=== PATIENT | male | born 1985 | race African-American/Black ===

== ENCOUNTER 2016-12-04 13:19 | Emergency (ER) | payer OTHER ==
[2016-12-04 13:24] VITALS: BP 122/75; PULSE 75; TEMP 98; BMI 25.7
--- NOTE | 2016-12-04 14:25 | PDOC ---
History of Present Illness <Latoya Torres - Last Filed: 12/04/16 16:58> - History of Present Illness Initial Comments: 12/04/16 22:47 Patient is a 31 year old male with significant history of recent HIV diagnosis ( not on HAART yet) who presents to the ED sent in by Dr. Kowalski from [facility] with diarrhea. Patient states that he was seen in the ED 4 weeks ago and his K was 2.9 and he was referred to GI. He was evaluated by GI and had a normal colonoscopy but was diagnosed with HIV. Patient also reported that he had 50 lb loss in 6 months. Patient states that he was seen by Dr. Kowalski today where he continued to endorse many episodes of diarrhea and had concerning changes on ECG for hypokalemia. He also reports diarrhea for 6 months , watery-yellow, intermittent, nonbloody, not alleviated with probiotics and imodium. He denies any fever or chills. He denies any abdominal pain, nausea, vomiting or lightheadedness. He denies any cp, SOB or palpitations. He reports having sexual intercourse with multiple partners, using protection. He denies any prior hx of STD. I spoke with Dr. Kowalski personally who called the patient in and was concerned because he had U waves on his ECG. PMD - Dr. Kennedy <Dalila Beauchamp - Last Filed: 12/04/16 23:02> - General Chief Complaint: Diarrhea Stated Complaint: LAB VARIANCE (PCP SENT) LOW K Time Seen by Provider: 12/04/16 14:24 Past History <Latoya Torres - Last Filed: 12/04/16 16:58> - Past Medical History Anemia: No Asthma: Yes Cancer: No Cardiac Disorders: No CVA: No COPD: No CHF: No Dementia: No Diabetes: No GI Disorders: No Disorders: Yes (seveeral UTI) HTN: (borderline htn) Hypercholesterolemia: No Liver Disease: No Seizures: No Thyroid Disease: No - Suicide/Smoking/Psychosocial Hx Smoking History: Never smoked Information on smoking cessation initiated: No Hx Alcohol Use: No Drug/Substance Use Hx: No Substance Use Type: None Hx Substance Use Treatment: No <Dalila Beauchamp - Last Filed: 12/04/16 23:02> - Past Medical History Allergies/Adverse Reactions: Allergies Allergy/AdvReac Type Severity Reaction Status Date / Time No Known Allergies Allergy Verified 12/04/16 13:24 Home Medications: Ambulatory Orders Potassium Chloride [K-Dur -] 20 meq PO BID #60 tablet.er 12/04/16 Review of Systems - Review of Systems Comments:: 12/04/16 22:48 GENERAL/CONSTITUTIONAL: No fever or chills. No weakness. HEAD, EYES, EARS, NOSE AND THROAT: No change in vision. No ear pain or discharge. No sore throat. GASTROINTESTINAL: +diarrhea. No nausea, vomiting or constipation. GENITOURINARY: No dysuria, frequency, or change in urination. CARDIOVASCULAR: No chest pain or shortness of breath. RESPIRATORY: No cough, wheezing, or hemoptysis. MUSCULOSKELETAL: No joint or muscle swelling or pain. No neck or back pain. SKIN: No rash NEUROLOGIC: No headache, vertigo, loss of consciousness, or change in strength/ sensation. ENDOCRINE: No increased thirst. No abnormal weight change. HEMATOLOGIC/LYMPHATIC: No anemia, easy bleeding, or history of blood clots. ALLERGIC/IMMUNOLOGIC: No hives or skin allergy. <Dalila Beauchamp - Last Filed: 12/04/16 23:02> *Physical Exam - Vital Signs Last Vital Signs Temp Pulse Resp BP Pulse Ox 98 F 75 18 122/75 100 12/04/16 13:22 12/04/16 13:22 12/04/16 13:22 12/04/16 13:22 12/04/16 13:22 <Latoya Torres - Last Filed: 12/04/16 16:58> - Vital Signs Last Vital Signs Temp Pulse Resp BP Pulse Ox 98 F 75 18 122/75 100 12/04/16 13:22 12/04/16 13:22 12/04/16 13:22 12/04/16 13:22 12/04/16 13:22 - Physical Exam Comments: 12/04/16 22:49 GENERAL: Awake, alert, and fully oriented, in no acute distress HEAD: No signs of trauma EYES: PERRLA, EOMI, sclera anicteric, conjunctiva clear ENT: Auricles normal inspection, hearing grossly normal, nares patent, oropharynx clear without exudates. Moist mucosa NECK: Normal ROM, supple, no lymphadenopathy, JVD, or masses LUNGS: Breath sounds equal, clear to auscultation bilaterally. No wheezes, and no crackles HEART: Regular rate and rhythm, normal S1 and S2, no murmurs, rubs or gallops ABDOMEN: Soft, nontender, normoactive bowel sounds. No guarding, no rebound. No masses EXTREMITIES: Normal range of motion, no edema. No clubbing or cyanosis. No cords, erythema, or tenderness BACK: No midline spinal tendernes in cervial/throacic/lumbar region NEUROLOGICAL: Normal speech, cranial nerves intact, negative pronator drift, 5/ 5 strength in all 4 extremities, normal sensation to light touch in all 4 extremities, normal cerebellar exam, normal gait, normal reflexes and tone SKIN: Warm, Dry, normal turgor, no rashes or lesions noted. <Dalila Beauchamp - Last Filed: 12/04/16 23:02> Heart Score/ECG Review #1 12/04/16 22:49 Twelve-lead EKG was performed and reviewed by me. Normal sinus rhythm, rate of 62. Normal axis and intervals. No ST elevations. T wave inversions in leads 2, 3 , and aVF. Also T-wave inversions in V3 and V4. Positive U wave in lead V2. <Dalila Beauchamp - Last Filed: 12/04/16 23:02> ED Treatment Course - LABORATORY CBC & Chemistry Diagram: 12/04/16 14:25 12/04/16 14:25 - ADDITIONAL ORDERS Additional order review: Laboratory Results 12/04/16 14:25 Sodium 141 Potassium 2.8 L* Chloride 106 Carbon Dioxide 31 Anion Gap 4 L BUN 7 Creatinine 0.9 Creat Clearance w eGFR > 60 Random Glucose 95 Calcium 9.0 Magnesium 1.8 Total Bilirubin 1.2 H AST 31 ALT 48 Alkaline Phosphatase 85 Total Protein 8.4 H Albumin 4.0 12/04/16 14:25 RBC 4.34 MCV 84.6 MCHC 33.9 RDW 15.3 MPV 7.9 Neutrophils % 59.5 Lymphocytes % 24.9 Monocytes % 6.6 Eosinophils % 7.8 H Basophils % 1.2 - Medications Given in the ED: ED Medications Discontinued Medications Generic Name Dose Route Start Last Admin Trade Name Freq PRN Reason Stop Dose Admin Potassium Chloride 60 meq 12/04/16 15:04 12/04/16 15:34 Potassium Chloride Oral Liquid PO 12/04/16 15:05 60 meq ONCE ONE Administration <Leticia Torresa - Last Filed: 12/04/16 16:58> - LABORATORY CBC & Chemistry Diagram: 12/04/16 14:25 12/04/16 18:30 <Dalila Beauchamp - Last Filed: 12/04/16 23:02> Medical Decision Making - Medical Decision Making 12/04/16 15:30 31-year-old male with a history of recently diagnosed HIV, chronic diarrhea presents with concern for hypokalemia. Patient's potassium here today's 2.8. His vitals are stable and his exam is unremarkable however there is concern for cardiac arrhythmia secondary to his low potassium. We will replete and recheck the potassium. -60meq PO KCl -10meq KCl in 1L NS IV -recheck BMP 5:30p 12/04/16 20:02 Repeat potassium is still 2.8. Patient likely has malabsorption and did not absorb any of the PO potassium. I discussed with patient that his potassium is very low and will require admission for IV repletion however he reports he has a prior engagement at 9:30pm. He lets me know that he will return to the emergency department at 11:30 or 12a midnight for IV repletion of his potassium. The patient is clinically sober, free from distracting injury, appears to have intact insight and judgment and reason and in my opinion has the capacity to make decisions. The patient presents with hypokalemia. I have explained that I am concerned that this may cause abnormal heart rhythms that could cause him to lose consciousness or even ; he has verbalized an understanding of my concerns. I have told the patient that if they leave and have a low potassium level, they could get much worse, could become critically ill, and could possibly become disabled or . I have offered to give the patient more pain medication. I have asked them to stay in the hospital for multiple doses of IV potassium. The patient is not willing to stay for admission, observation, or treatment. He states he will return later tonight after his prior engagement. He is refusing any further care now and is leaving against medical advice. I am unable to convince the patient to stay, I have asked them to return as soon as possible to complete their evaluation. I have spoken with Dr. Kowalski in regards to their persistent hypokalemia who will also reach out to the patient. I have answered all their questions. The patient signed the AMA form and left the emergency department. I informed the night attending that this patient may be returning tonight and that he will need an obs admission for IV K repletion. <Dalila Beauchamp - Last Filed: 12/04/16 23:02> *DC/Admit/Observation/Transfer <Latoya Torres - Last Filed: 12/04/16 16:58> <Dalila Beauchamp - Last Filed: 12/04/16 23:02> Diagnosis at time of Disposition: Hypokalemia - Discharge Dispostion Disposition: AGAINST MEDICAL ADVICE Condition at time of disposition: Unchanged/Unknown - Referrals Referrals: Gerson Kennedy MD [Primary Care Provider] -
[2016-12-04] MEDS ORDERED: POTASSIUM CHLORIDE 10 MEQ in SODIUM CHLORIDE 1,000 ML IVPB SCH (14:30)
[2016-12-04 14:38] LABS: BASOPHIL 1.2 % (0-2.0); EOSINOPHIL 7.8 % (0-4.5); MCH 28.7 pg (25.7-33.7); MCHC 33.9 g/dl (32.0-35.9); MEAN CELL VOLUME 84.6 fl (80-96); MEAN PLT VOLUME 7.9 fl (7.5-11.1); NEUTROPHILS 59.5 % (42.8-82.8); PLATELET COUNT 293 K/MM3 (134-434); RDW 15.3 % (11.9-15.9); WHITE BLOOD COUNT 4.3 K/mm3 (4.0-10.0)
[2016-12-04 14:54] LABS: ANION GAP 4 (8-16); BILIRUBIN,TOTAL 1.2 mg/dL (0.2-1.0); CO2 31 mmol/L (21-32); CREATININE 0.9 mg/dL (0.7-1.3); GLUCOSE,RANDOM 95 mg/dL (74-106); MAGNESIUM 1.8 mg/dL (1.8-2.4); SGOT/AST 31 U/L (15-37); SGPT/ALT 48 U/L (12-78); TOT PROT 8.4 g/dl (6.4-8.2)
[2016-12-04 14:55] LABS: ALK PHOS 85 U/L (45-117)
[2016-12-04] MEDS ORDERED: POTASSIUM CHLORIDE ORAL LIQUID 20 MEQ/15 ML PO ONE (15:04)
[2016-12-04] MEDS ORDERED: POTASSIUM CHLORIDE ORAL LIQUID 20 MEQ/15 ML ONE (15:33)
--- NOTE | 2016-12-04 15:58 | EKG ---
Test Reason : Blood Pressure : / mmHG Vent. Rate : 062 BPM Atrial Rate : 062 BPM P-R Int : 204 ms QRS Dur : 102 ms QT Int : 394 ms P-R-T Axes : 023 -10 -30 degrees QTc Int : 399 ms NORMAL SINUS RHYTHM NONSPECIFIC T WAVE ABNORMALITY ABNORMAL ECG WHEN COMPARED WITH ECG OF 04-DEC-2016 11:27, NO SIGNIFICANT CHANGE WAS FOUND Confirmed by LEATHA MILLER MD ([id number]) on 12/04/2016 3:57:34 PM Referred By: Confirmed By:LEATHA MILLER MD
[2016-12-04 19:10] LABS: ALBUMIN 3.9 g/dl (3.4-5.0); ANION GAP 9 (8-16); CALCIUM 8.7 mg/dL (8.5-10.1); CO2 27 mmol/L (21-32); CREATININE 0.8 mg/dL (0.7-1.3); GLUCOSE,RANDOM 80 mg/dL (74-106); SGOT/AST 29 U/L (15-37); SGPT/ALT 44 U/L (12-78); TOT PROT 7.9 g/dl (6.4-8.2)
[2016-12-04 19:11] LABS: ALK PHOS 118 U/L (45-117)
== END 2016-12-04 21:26 | disposition left against medical advice (07) ==
LOC: JER 13:19
DX: E87.6 Hypokalemia (principal); Z21 Asymptomatic human immunodeficiency virus [HIV] infection status; I10 Essential (primary) hypertension; J45.909 Unspecified asthma, uncomplicated; Z87.440 Personal history of urinary (tract) infections
CPT/HCPCS: 36415; 80053; 83735; 85025; 93005; 93010; 99284-25

== ENCOUNTER 2016-12-05 08:04 | Emergency (ER) | payer OTHER ==
[2016-12-05 08:15] VITALS: TEMP 98.2; BMI 25.7
[2016-12-05 08:43] LABS: BASOPHIL 0.9 % (0-2.0); EOSINOPHIL 9.6 % (0-4.5); MCH 29.2 pg (25.7-33.7); MCHC 34.4 g/dl (32.0-35.9); NEUTROPHILS 47.1 % (42.8-82.8); PLATELET COUNT 293 K/MM3 (134-434); RDW 15.7 % (11.9-15.9)
[2016-12-05 08:50] LABS: PH,URINE 6.5 (5.0-8.0); URINE APPEARANCE CLEAR; URINE BILIRUBIN NEGATIVE (NEGATIVE); URINE BLOOD TRACE-LYSE (NEGATIVE); URINE COLOR LT. YELLOW; URINE GLUCOSE (UA) NEGATIVE (NEGATIVE); URINE KETONE TRACE (NEGATIVE); URINE LEUK ESTERASE NEGATIVE (NEGATIVE); URINE NITRITE NEGATIVE (NEGATIVE)
[2016-12-05 08:58] LABS: URINE PROTEIN 1+ (NEGATIVE)
[2016-12-05 09:07] LABS: ANION GAP 8 (8-16); CALCIUM 9.1 mg/dL (8.5-10.1); CO2 25 mmol/L (21-32); CREATININE 0.8 mg/dL (0.7-1.3); GLUCOSE,RANDOM 82 mg/dL (74-106); MAGNESIUM 1.9 mg/dL (1.8-2.4); SGOT/AST 33 U/L (15-37); SGPT/ALT 47 U/L (12-78); TOT PROT 8.3 g/dl (6.4-8.2)
[2016-12-05 09:08] LABS: ALK PHOS 91 U/L (45-117)
[2016-12-05] MEDS ORDERED: POTASSIUM CHLORIDE TABS 20 MEQ TABLET.ER (FP) PO ONE ×4 (09:11→13:30)
[2016-12-05 09:14] LABS: URINE BACTERIA RARE /hpf (NONE SEEN); URINE MUCUS RARE; URINE RBC <1 /hpf (0-3); URINE WBC 6 /hpf (3-5)
[2016-12-05] MEDS ORDERED: MAGNESIUM OXIDE 400 MG TABLET (FP) PO ONE (09:18)
[2016-12-05] MEDS ORDERED: KCL 10 MEQ IVPB 200 ML IVPB ONE (09:21)
[2016-12-05] MEDS ORDERED: MAGNESIUM OXIDE 400 MG TABLET (FP) ONE (09:21)
[2016-12-05] MEDS: KCL 10 MEQ IVPB 100 ML IVPB SCH ×2 (09:31→10:34)
--- NOTE | 2016-12-05 09:41 | PDOC ---
History of Present Illness - General History Source: Patient Exam Limitations: No Limitations - History of Present Illness Initial Comments: 12/05/16 09:46 The patient is a 31 year old male, with a significant past medical history of HIV(recently diagnosed 4 weeks ago, currently not on HAART but plans to f/u), asthma, UTIs, and borderline hypertension, who presents to the emergency department complaining of diarrhea for approximately 6 months. The patient reports he was sent from the [facility] yesterday, by Dr. Rose for evaluation of 6 months of diarrhea and concerning U waves on ECG for hypokalemia. Patient states a stool sample was taken at Dr. Kelly office , but he does not have the results. Patient reports diarrhea episodes 10-15 times per day. He describes his diarrhea as a watery-yellow, intermittent, and nonbloody. Per records, diarrhea is not alleviated with probiotics or immodium. Patient reports he was seen in the ED 4 weeks ago, where he had blood tests done , which revealed a K of 2.9. Patient reports he was referred to GI, where he was diagnosed with HIV. As per records the patient has lost 50 lbs in the past 6 months. Patient denies any abdominal pain, nausea, vomiting, or constipation. He denies any chest pain, shortness of breath, diaphoresis, or palpitations. He denies any weakness, muscle spasms, fever, chills, headache, dizziness, or lightheadedness. Patient reports having sexual intercourse with multiple partners using protections, but denies any previous STD history, Allergies: NKDA Past Surgical History: None reported Social History: Non smoker. No ETOH or recreational drug use. PCP: Dr. Kennedy GI: Dr. Rodriguez <Scarlet Mg - Last Filed: 12/05/16 09:49> - General History Source: Patient Exam Limitations: No Limitations <Monika Goode - Last Filed: 12/05/16 14:14> - General Chief Complaint: Revisit, Lab Variance Stated Complaint: LOW BLOOD LEVEL Time Seen by Provider: 12/05/16 08:22 Past History <Scarlet Mg - Last Filed: 12/05/16 09:49> - Past Medical History Anemia: No Asthma: Yes Cancer: No Cardiac Disorders: No CVA: No COPD: No CHF: No Dementia: No Diabetes: No GI Disorders: No Disorders: Yes (seveeral UTI) HTN: (borderline htn) Hypercholesterolemia: No Liver Disease: No Seizures: No Thyroid Disease: No - Suicide/Smoking/Psychosocial Hx Smoking History: Never smoked Have you smoked in the past 12 months: No Information on smoking cessation initiated: No Hx Alcohol Use: No Drug/Substance Use Hx: No Substance Use Type: None Hx Substance Use Treatment: No <Monika Goode - Last Filed: 12/05/16 14:14> - Past Medical History Allergies/Adverse Reactions: Allergies Allergy/AdvReac Type Severity Reaction Status Date / Time No Known Allergies Allergy Verified 12/05/16 08:09 Home Medications: Ambulatory Orders Potassium Chloride [K-Dur -] 20 meq PO BID #60 tablet.er 12/05/16 Review of Systems - Review of Systems Able to Perform ROS?: Yes Comments:: 12/05/16 09:46 GENERAL/CONSTITUTIONAL: No fever or chills. No weakness. HEAD, EYES, EARS, NOSE AND THROAT: No change in vision. No ear pain or discharge. No sore throat. CARDIOVASCULAR: No chest pain or shortness of breath. RESPIRATORY: No cough, wheezing, or hemoptysis. GASTROINTESTINAL: Yes diarrhea. No nausea, vomiting, or constipation. GENITOURINARY: No dysuria, frequency, or change in urination. MUSCULOSKELETAL: No joint or muscle swelling or pain. No neck or back pain. No muscle spasms. SKIN: No rash NEUROLOGIC: No headache, vertigo, loss of consciousness, or change in strength/ sensation. ENDOCRINE: No increased thirst. No abnormal weight change. HEMATOLOGIC/LYMPHATIC: No anemia, easy bleeding, or history of blood clots. ALLERGIC/IMMUNOLOGIC: No hives or skin allergy. <Scarlet Mg - Last Filed: 12/05/16 09:49> *Physical Exam - Vital Signs Last Vital Signs Temp Pulse Resp BP Pulse Ox 98.2 F 81 20 120/83 98 12/05/16 08:09 12/05/16 08:09 12/05/16 08:09 12/05/16 08:09 12/05/16 08:09 - Physical Exam Comments: 12/05/16 09:46 GENERAL: Awake, alert, and fully oriented, in no acute distress HEAD: No signs of trauma EYES: PERRLA, EOMI, sclera anicteric, conjunctiva clear ENT: Auricles normal inspection, hearing grossly normal, nares patent. Moist mucosa NECK: Normal ROM, supple, no lymphadenopathy, JVD, or masses LUNGS: Breath sounds equal, clear to auscultation bilaterally. No wheezes, and no crackles HEART: Regular rate and rhythm, normal S1 and S2, no murmurs, rubs or gallops ABDOMEN: Soft, nontender, normoactive bowel sounds. No guarding, no rebound. No masses EXTREMITIES: Normal range of motion, no edema. No clubbing or cyanosis. No cords, erythema, or tenderness. DP/PT pulses 2+ and symmetric. NEUROLOGICAL: Moves all extremities. Normal speech, normal gait SKIN: Warm, Dry, normal turgor, no rashes or lesions noted. <Scarlet Mg - Last Filed: 12/05/16 09:49> - Vital Signs Last Vital Signs Temp Pulse Resp BP Pulse Ox 98.2 F 81 20 120/83 98 12/05/16 08:09 12/05/16 08:09 12/05/16 08:09 12/05/16 08:09 12/05/16 08:09 <Monika Goode - Last Filed: 12/05/16 14:14> Heart Score/ECG Review - ECG Intrepretation Comment:: 12/05/16 09:49 Vent Rate: 69 bpm IMPRESSION: Normal sinus rhythm. Nonspecific T wave abnormality. <Scarlet Mg - Last Filed: 12/05/16 09:49> ED Treatment Course - LABORATORY CBC & Chemistry Diagram: 12/05/16 08:30 12/05/16 08:30 - ADDITIONAL ORDERS Additional order review: Laboratory Results 12/05/16 12/05/16 12/05/16 08:30 08:30 08:25 Sodium 141 Potassium 2.9 L* Chloride 108 H Carbon Dioxide 25 Anion Gap 8 BUN 9 D Creatinine 0.8 Creat Clearance w eGFR > 60 Random Glucose 82 Calcium 9.1 Magnesium 1.9 Cancelled Total Bilirubin 1.0 AST 33 ALT 47 Alkaline Phosphatase 91 D Total Protein 8.3 H Albumin 4.0 Urine Color Lt. yellow Urine Appearance Clear Urine pH 6.5 Urine Protein 1+ H Urine Glucose (UA) Negative Urine Ketones Trace H Urine Blood Trace-lyse Urine Nitrite Negative Urine Bilirubin Negative Urine Urobilinogen 1.0 Urine RBC <1 Urine WBC 6 Urine Bacteria Rare Urine Mucus Rare 12/05/16 08:30 RBC 4.29 MCV 85.0 MCHC 34.4 RDW 15.7 MPV 8.0 Neutrophils % 47.1 D Lymphocytes % 33.1 D Monocytes % 9.3 Eosinophils % 9.6 H Basophils % 0.9 - Medications Given in the ED: ED Medications Discontinued Medications Generic Name Dose Route Start Last Admin Trade Name Freq PRN Reason Stop Dose Admin Magnesium Oxide 800 mg 12/05/16 09:18 12/05/16 09:31 Mag-Ox - PO 12/05/16 09:19 800 mg ONCE ONE Administration Potassium Chloride 40 meq 12/05/16 09:11 12/05/16 09:13 K-Dur - PO 12/05/16 09:12 40 meq ONCE ONE Administration <Scarlet Mg - Last Filed: 12/05/16 09:49> - LABORATORY CBC & Chemistry Diagram: 12/05/16 08:30 12/05/16 12:54 - ADDITIONAL ORDERS Additional order review: Laboratory Results 12/05/16 12/05/16 12/05/16 08:30 08:30 08:25 Sodium 141 Potassium 2.9 L* Chloride 108 H Carbon Dioxide 25 Anion Gap 8 BUN 9 D Creatinine 0.8 Creat Clearance w eGFR > 60 Random Glucose 82 Calcium 9.1 Magnesium 1.9 Cancelled Total Bilirubin 1.0 AST 33 ALT 47 Alkaline Phosphatase 91 D Total Protein 8.3 H Albumin 4.0 Urine Color Lt. yellow Urine Appearance Clear Urine pH 6.5 Urine Protein 1+ H Urine Glucose (UA) Negative Urine Ketones Trace H Urine Blood Trace-lyse Urine Nitrite Negative Urine Bilirubin Negative Urine Urobilinogen 1.0 Urine RBC <1 Urine WBC 6 Urine Bacteria Rare Urine Mucus Rare 12/05/16 08:30 RBC 4.29 MCV 85.0 MCHC 34.4 RDW 15.7 MPV 8.0 Neutrophils % 47.1 D Lymphocytes % 33.1 D Monocytes % 9.3 Eosinophils % 9.6 H Basophils % 0.9 - Medications Given in the ED: ED Medications Discontinued Medications Generic Name Dose Route Start Last Admin Trade Name Freq PRN Reason Stop Dose Admin Magnesium Oxide 800 mg 12/05/16 09:18 12/05/16 09:31 Mag-Ox - PO 12/05/16 09:19 800 mg ONCE ONE Administration Potassium Chloride 40 meq 12/05/16 09:11 12/05/16 09:13 K-Dur - PO 12/05/16 09:12 40 meq ONCE ONE Administration <Monika Goode - Last Filed: 12/05/16 14:14> Medical Decision Making - Medical Decision Making 12/05/16 09:[address] Rdz at 09:44. <Scarlet Mg - Last Filed: 12/05/16 09:49> - Medical Decision Making 12/05/16 09:37 31 yo male h/o recently dgx hiv ( 3 weeks ago) CD4 uknown , colitis for 6 months. reports 10 - 15 watery bm/ day. was seen recently by [facility] 4 weeks ago, and they did recently send stool cultures. states he has seen a GI. was seen yesterday in ED, potassium found to be 2.7, was given total 100 meq potassium both oral and IV, and min improvement. pt left ama. no weakness. no other comlaints. on exam awake alert lungs clear heart rrr nomrg. abd soft nt nd. ext wwp. nuero alert oriented x 2 plan: r/o hypokalemia, ekg , r/o hypomagnesiumia. consider observation/ admission if still low. 12/05/16 13:51 pt rpt potassium 3.3 refusing to stay in hospital. has oupt follow up with DR Cohen on 6 days from today. will dc on potassium 40 meq daily x 7 days. told to return for any problems or concerns. 12/05/16 14:14 d/w Dr Kowalski, will see on 12/08 for follow up and repeat potassium, given rx for [address] kowalski. <Monika Goode - Last Filed: 12/05/16 14:14> *DC/Admit/Observation/Transfer - Attestations Scribe Attestion: 12/05/16 09:46 Documentation prepared by Scarlet Mg, acting as medical record coder for Monika Goode MD. <Scarlet Mg - Last Filed: 12/05/16 09:49> - Discharge Dispostion Admit: No <Monika Goode - Last Filed: 12/05/16 14:14> Diagnosis at time of Disposition: Hypokalemia due to loss of potassium, Colitis - Discharge Dispostion Disposition: HOME Condition at time of disposition: Improved - Prescriptions Prescriptions: Potassium Chloride [K-Dur -] 20 meq PO BID #60 tablet.er - Referrals Referrals: Wanda Kowalski MD [Staff Physician] - - Patient Instructions Printed Discharge Instructions: DI for Hypokalemia Additional Instructions: you should take potassium 20 meq twice daily . follow up with Dr Kowalski on thursday, 12/08 call to confirm. return for any problems or concerns. drink plenty of liquids
[2016-12-05 13:12] LABS: ALBUMIN 3.8 g/dl (3.4-5.0); ANION GAP 8 (8-16); BILIRUBIN,TOTAL 0.7 mg/dL (0.2-1.0); CALCIUM 8.7 mg/dL (8.5-10.1); CO2 25 mmol/L (21-32); CREATININE 0.7 mg/dL (0.7-1.3); GLUCOSE,RANDOM 79 mg/dL (74-106); MAGNESIUM 1.9 mg/dL (1.8-2.4); SGOT/AST 29 U/L (15-37); SGPT/ALT 44 U/L (12-78); TOT PROT 7.8 g/dl (6.4-8.2)
[2016-12-05 13:13] LABS: ALK PHOS 91 U/L (45-117)
[2016-12-05 14:25] VITALS: BP 135/80; PULSE 68
--- NOTE | 2016-12-06 09:48 | EKG ---
Test Reason : Blood Pressure : / mmHG Vent. Rate : 069 BPM Atrial Rate : 069 BPM P-R Int : 174 ms QRS Dur : 100 ms QT Int : 412 ms P-R-T Axes : 045 -10 000 degrees QTc Int : 441 ms NORMAL SINUS RHYTHM NONSPECIFIC T WAVE ABNORMALITY ABNORMAL ECG WHEN COMPARED WITH ECG OF 04-DEC-2016 15:51, NO SIGNIFICANT CHANGE WAS FOUND Confirmed by MD LI, MIKE ([id number]) on 12/06/2016 9:48:16 AM Referred By: Confirmed By:MIKE JEFFERSON MD
== END 2016-12-05 14:28 | disposition home or self-care (01) ==
LOC: JER 08:04 → UNDOADMIN 09:47 → JERBED 09:47 → JER 14:28
DX: E87.6 Hypokalemia (principal); Z21 Asymptomatic human immunodeficiency virus [HIV] infection status; J45.909 Unspecified asthma, uncomplicated; K52.9 Noninfective gastroenteritis and colitis, unspecified
CPT/HCPCS: 36415; 80053; 81003; 81015; 83735; 85025; 87045; 87046; 87177; 87209; 93005; 93010; 99283-25